=== PATIENT | male | born 1940 | race Caucasian/White ===

== ENCOUNTER 2022-06-04 09:41 | Day surgery (SDC) | payer MEDICARE, BC ==
[2022-06-04] VITALS (9 sets, daily range): BP systolic 129–163; BP diastolic 83–106
[~2022-06-04] VITALS: Ht 188 cm; Wt 125.5 kg
[2022-06-04] MEDS ORDERED: LORazepam 0.5 MG tablet PO PRN (10:20)
[2022-06-04] MEDS ORDERED: normal saline 1,000 ML IV SCH (10:20)
[2022-06-04 10:36] LABS: BASOPHILS # (AUTO) 0.1 X10'3 (0-0.2); BASOPHILS % (AUTO) 0.8 % (0-1); EOSINOPHILS # (AUTO) 0.2 X10'3 (0-0.9); EOSINOPHILS % (AUTO) 2.8 % (0-6); HEMATOCRIT 46.8 % (42.0-52.0); HEMOGLOBIN 15.7 g/dl (14.0-17.9); LYMPHOCYTES # (AUTO) 2.1 X10'3 (1.1-4.8); LYMPHOCYTES % (AUTO) 23.7 % (21-51); MEAN CORPUSCULAR HEMOGLOBIN 31.7 PG (27.0-31.0); MEAN CORPUSCULAR HGB CONC 33.5 g/dL (33.0-36.5); MEAN CORPUSCULAR VOLUME 94.6 FL (78-98); MEAN PLATELET VOLUME 8.4 FL (7.4-10.4); MONOCYTES # (AUTO) 0.9 X10'3 (0-0.9); MONOCYTES % (AUTO) 10.9 % (2-12); NEUTROPHILS # (AUTO) 5.4 X10'3 (1.8-7.7); NEUTROPHILS % (AUTO) 61.8 % (42-75); PLATELET COUNT 251 X10'3 (140-440); RED BLOOD COUNT 4.95 X10'6 (4.70-6.10); WHITE BLOOD COUNT 8.7 X10'3 (4.5-11.0)
[2022-06-04 10:55] LABS: CHLORIDE 104 MMOL/L (99-107); POTASSIUM 3.9 MMOL/L (3.5-5.1); SODIUM 139 MMOL/L (135-145)
[2022-06-04 11:01] LABS: ANION GAP 5 (8-16); BLOOD UREA NITROGEN 23 MG/DL (7-18); BUN/CREATININE RATIO 20.5 (5.4-32.0); CALCIUM 10.5 MG/DL (8.5-10.1); CREATININE 1.12 MG/DL (0.60-1.10); GLUCOSE 90 MG/DL (70-104); TOTAL CARBON DIOXIDE 30.4 MMOL/L (24-32); eGFR 63 ML/MIN
[2022-06-04] MEDS ORDERED: NITR0.4T48 SL (11:19)
[2022-06-04] MEDS ORDERED: SPIR25TA5 PO (11:19)
[2022-06-04] MEDS ORDERED: RIVA20TA PO (11:19)
[2022-06-04] MEDS ORDERED: FLEC100T PO (11:19)
[2022-06-04] MEDS ORDERED: AMLO5TAB16 PO (11:19)
[2022-06-04] MEDS ORDERED: ALPR0.5T9 PO (11:19)
[2022-06-04] MEDS ORDERED: midazolam 1 mg/ML 2ml injection ONE ×3 (13:26→13:57)
[2022-06-04] MEDS ORDERED: nitroGLYCERIN-Tridil 50MG/D5W 250 ML IV ONE (13:26)
[2022-06-04] MEDS ORDERED: fentaNYL/PF 50MCG/1 ML 2ML syringe ONE (13:26)
[2022-06-04] MEDS ORDERED: verapamil 2.5 mg/ml inj IV ONE (13:26)
[2022-06-04] MEDS ORDERED: LIDOcaine 1% (10mg/ml) 2ml vial ONE (13:27)
[2022-06-04] MEDS ORDERED: heparin 1,000unit/ml 10ml vial 10 ML ONE (13:27)
[2022-06-04] MEDS ORDERED: iohexol 350MG/ML 100ml bottle IV ONE (13:27)
== END 2022-06-04 18:00 | disposition home or self-care (01) ==
LOC: SSTAY O 09:41
PROVIDERS: ATTEND Internal Medicine Cardiovascular Disease
DX: I25.10 Atherosclerotic heart disease of native coronary artery without angina pectoris (principal); I48.0 Paroxysmal atrial fibrillation; I10 Essential (primary) hypertension; Z98.890 Other specified postprocedural states; Z82.49 Family history of ischemic heart disease and other diseases of the circulatory system; Z79.899 Other long term (current) drug therapy; Z88.1 Allergy status to other antibiotic agents
CPT/HCPCS: 36415; 80048; 82948; 83735; 85025; 85610; 93454; 99152; 99153; C1769; C1894; J1644; J2250; J3010; J3490; J7030; Q9967; A6258; A6402

== ENCOUNTER 2022-06-15 06:46 | Day surgery (SDC) | payer MEDICARE, BC ==
[~2022-06-15] VITALS: Ht 188 cm; Wt 126.1 kg
[2022-06-15] VITALS (36 sets, daily range): BP systolic 52–158; BP diastolic 25–96
[~2022-06-15 06:46] MED LIST: ALPR0.5T9 PO; AMLO5TAB16 PO; FLEC100T PO; NITR0.4T48 SL; RIVA20TA PO; SPIR25TA5 PO
[2022-06-15] MEDS ORDERED: diphenhydrAMINE 25mg capsule PO PRN (07:10)
[2022-06-15] MEDS ORDERED: normal saline 1,000 ML IV SCH (07:10)
[2022-06-15] MEDS ORDERED: POTA8CAP20 PO (07:13)
[2022-06-15] MEDS ORDERED: FURO20TA4 PO (07:13)
[2022-06-15] MEDS ORDERED: LIDOcaine 1% (10mg/ml) 2ml vial ONE (07:21)
[2022-06-15 07:54] LABS: BASOPHILS # (AUTO) 0.1 X10'3 (0-0.2); BASOPHILS % (AUTO) 0.7 % (0-1); EOSINOPHILS # (AUTO) 0.3 X10'3 (0-0.9); EOSINOPHILS % (AUTO) 3.1 % (0-6); HEMATOCRIT 44.4 % (42.0-52.0); LYMPHOCYTES # (AUTO) 2.1 X10'3 (1.1-4.8); LYMPHOCYTES % (AUTO) 24.9 % (21-51); MEAN CORPUSCULAR HEMOGLOBIN 31.8 PG (27.0-31.0); MEAN CORPUSCULAR HGB CONC 33.8 g/dL (33.0-36.5); MEAN CORPUSCULAR VOLUME 94.1 FL (78-98); MEAN PLATELET VOLUME 8.3 FL (7.4-10.4); MONOCYTES # (AUTO) 1.2 X10'3 (0-0.9); MONOCYTES % (AUTO) 14.6 % (2-12); NEUTROPHILS # (AUTO) 4.8 X10'3 (1.8-7.7); NEUTROPHILS % (AUTO) 56.7 % (42-75); PLATELET COUNT 261 X10'3 (140-440); RED BLOOD COUNT 4.72 X10'6 (4.70-6.10); RED CELL DISTRIBUTION WIDTH 14.2 % (11.5-14.5); WHITE BLOOD COUNT 8.4 X10'3 (4.5-11.0)
[2022-06-15 08:56] LABS: ALBUMIN 3.7 G/DL (3.4-5.0); ANION GAP 7 (8-16); BLOOD UREA NITROGEN 22 MG/DL (7-18); BUN/CREATININE RATIO 18.8 (5.4-32.0); CALCIUM 9.7 MG/DL (8.5-10.1); CHLORIDE 104 MMOL/L (99-107); CREATININE 1.17 MG/DL (0.60-1.10); GLUCOSE 89 MG/DL (70-104); POTASSIUM 3.8 MMOL/L (3.5-5.1); SODIUM 141 MMOL/L (135-145); TOTAL CARBON DIOXIDE 29.7 MMOL/L (24-32); eGFR 60 ML/MIN
[2022-06-15] MEDS ORDERED: LIDOcaine 1% 30ml preserv. free vial ONE (10:27)
[2022-06-15] MEDS ORDERED: fentaNYL/PF 50MCG/1 ML 2ML syringe ONE (10:27)
[2022-06-15] MEDS ORDERED: midazolam 1 mg/ML 2ml injection ONE ×2 (10:27→10:58)
[2022-06-15] MEDS ORDERED: heparin 1,000unit/ml 10ml vial 10 ML ONE (10:27)
[2022-06-15] MEDS ORDERED: iohexol 350MG/ML 100ml bottle IV ONE ×3 (10:28→12:40)
[2022-06-15] MEDS ORDERED: HYDROmorphone 1 mg/ml syringe ONE ×2 (11:19→12:32)
[2022-06-15] MEDS ORDERED: morphine 2 MG/ML inj. syringe ONE (11:29)
[2022-06-15] MEDS ORDERED: protamine sulfate 10mg/ml inj. ONE (12:12)
[2022-06-15] MEDS ORDERED: clopidogrel 300mg tablet ONE (13:05)
[2022-06-15] MEDS ORDERED: nitroGLYCERIN 0.4mg SUBLingual tab SL ONE (13:49)
--- NOTE | 2022-06-15 13:49 | NUR ---
pt c/o left arm pain, notified Dr. Hawkins. Nitro SL given
--- NOTE | 2022-06-15 13:51 | NUR ---
nitro #2 given arm pain 08/31
[2022-06-15] MEDS ORDERED: ondansetron/PF 4mg/2ml inj IV PRN (13:55)
[2022-06-15] MEDS ORDERED: proCHLORperazine 10 MG/2 ml inj IV PRN (13:55)
[2022-06-15] MEDS ORDERED: HYDROcodone/acetaminophen 10/325mg tab PO PRN (13:55)
[2022-06-15] MEDS ORDERED: OXAZEpam 15mg capsule PO PRN (13:55)
--- NOTE | 2022-06-15 13:55 | NUR ---
pt reports cp 08/31 nitro #3 given
[2022-06-15] MEDS ORDERED: ketorolac trometh. 30mg/ml inj. IV ONE (14:10)
--- NOTE | 2022-06-15 15:25 | NUR ---
Pt reports crushing CP 10/10, grunting and grabbing at chest. Dr. Hawkins called. Nitro SL given
--- NOTE | 2022-06-15 15:29 | NUR ---
pt still c/o 10/10 CP nitro SL #2 given
--- NOTE | 2022-06-15 15:33 | NUR ---
pt continues to c/o CP nitro SL #3 given, EKG done
--- NOTE | 2022-06-15 15:38 | NUR ---
Pt BP extremely low despite Trendelenburg position and fluid bolus being administered.
--- NOTE | 2022-06-15 15:48 | NUR ---
Dr. Hawkins at bedside, Orders received.
[2022-06-15] MEDS ORDERED: colchicine 0.6mg tablet PO SCH (15:50)
--- NOTE | 2022-06-15 15:55 | NUR ---
ECHO in progress, Dr. Hawkins at bedside.
--- NOTE | 2022-06-15 16:59 | NUR ---
Patient in Short Stay. I have received report from Jen VEE and had the opportunity to ask questions and assume patient care.
[2022-06-15] MEDS ORDERED: TACR30OI4 TOP (17:20)
[2022-06-15] MEDS ORDERED: KETO15CR2 TOP (17:20)
[2022-06-15] MEDS ORDERED: ISOS30TA84 PO (17:20)
[2022-06-15] MEDS ORDERED: nitroGLYCERIN 0.4mg SUBLingual tab SL PRN (17:25)
[2022-06-15] MEDS ORDERED: ALPRAZolam 0.5mg tablet PO PRN (17:25)
[2022-06-15] MEDS ORDERED: ketoconazole 2% cream 15gm TP PRN (18:00)
--- NOTE | 2022-06-15 18:32 | NUR ---
Problems reprioritized. Patient report given, questions answered & plan of care reviewed with Blossom VEE.
[2022-06-15] MEDS: normal saline 1000ml 1,000 ML IV SCH (18:55)
[2022-06-15] MEDS ORDERED: TACROLIMUS TOP SCH (20:00)
[2022-06-15] MEDS: HYDROcodone/acetaminophen 5mg/325mg tablet PO PRN (21:48)
[2022-06-15] MEDS: flecainide 50mg tablet PO SCH (21:54)
[2022-06-16 02:00] VITALS: BP 119/83
[2022-06-16] MEDS: HYDROcodone/acetaminophen 5mg/325mg tablet PO PRN (04:07)
[2022-06-16 06:00] VITALS: BP 124/99
[2022-06-16 06:29] LABS: BASOPHILS % (AUTO) 0.1 % (0-1); EOSINOPHILS # (AUTO) 0.1 X10'3 (0-0.9); EOSINOPHILS % (AUTO) 0.5 % (0-6); HEMOGLOBIN 13.3 g/dl (14.0-17.9); LYMPHOCYTES # (AUTO) 1.4 X10'3 (1.1-4.8); LYMPHOCYTES % (AUTO) 10.6 % (21-51); MEAN CORPUSCULAR HEMOGLOBIN 31.4 PG (27.0-31.0); MEAN CORPUSCULAR HGB CONC 33.2 g/dL (33.0-36.5); MEAN CORPUSCULAR VOLUME 94.6 FL (78-98); MEAN PLATELET VOLUME 8.5 FL (7.4-10.4); MONOCYTES # (AUTO) 1.4 X10'3 (0-0.9); MONOCYTES % (AUTO) 10.5 % (2-12); NEUTROPHILS # (AUTO) 10.7 X10'3 (1.8-7.7); NEUTROPHILS % (AUTO) 78.3 % (42-75); PLATELET COUNT 257 X10'3 (140-440); RED BLOOD COUNT 4.22 X10'6 (4.70-6.10); RED CELL DISTRIBUTION WIDTH 14.2 % (11.5-14.5); WHITE BLOOD COUNT 13.6 X10'3 (4.5-11.0)
[2022-06-16 06:39] LABS: ANION GAP 8 (8-16); BLOOD UREA NITROGEN 24 MG/DL (7-18); BUN/CREATININE RATIO 20.7 (5.4-32.0); CALCIUM 8.6 MG/DL (8.5-10.1); CHLORIDE 103 MMOL/L (99-107); CREATININE 1.16 MG/DL (0.60-1.10); GLUCOSE 114 MG/DL (70-104); POTASSIUM 4.2 MMOL/L (3.5-5.1); SODIUM 134 MMOL/L (135-145); TOTAL CARBON DIOXIDE 22.7 MMOL/L (24-32); eGFR 61 ML/MIN
--- NOTE | 2022-06-16 06:39 | NUR ---
Problems reprioritized. Patient report given, questions answered & plan of care reviewed with Carol VEE.
[2022-06-16 07:32] VITALS: BP_SYST 153
[2022-06-16] MEDS: flecainide 50mg tablet PO SCH (07:32)
[2022-06-16] MEDS ORDERED: clopidogrel 75mg tablet PO SCH (08:00)
[2022-06-16] MEDS: normal saline 1000ml 1,000 ML IV SCH (08:00)
[2022-06-16] MEDS ORDERED: potassium chloride 8mEq ER tablet PO SCH (08:00)
[2022-06-16] MEDS ORDERED: isosorbide mononitrate 30mg tab.SR.24H PO SCH (08:00)
[2022-06-16] MEDS ORDERED: spironolactone 25 MG tablet PO SCH (08:00)
[2022-06-16] MEDS ORDERED: amLODIPine 5mg tablet PO SCH (08:00)
[2022-06-16] MEDS ORDERED: furosemide 20MG tablet PO SCH (08:00)
[2022-06-16] MEDS ORDERED: aspirin 81mg, enteric-coated 1 TAB TABLET.DR PO SCH (08:00)
[2022-06-16] MEDS ORDERED: CLOP-32 PO (10:33)
[2022-06-16] MEDS ORDERED: COLC0.6T72 PO (10:33)
[2022-06-16] MEDS ORDERED: ASPI81TA52 PO (10:33)
--- NOTE | 2022-06-16 11:00 | NUR ---
Called [facility] on to fill pt's prescriptions. Discharge instructions discussed with the patient and spouse. All questions answered. Pt and spouse stated that they understand all information. Removed PIV per protocol. Pt will leave unit via wheelchair.
--- NOTE | 2022-06-16 11:45 | NUR ---
pt leaving unit now via wheelchair.
[2022-06-17] MEDS ORDERED: rivaroxaban 20mg tablet PO SCH (18:00)
== END 2022-06-16 11:59 | disposition home or self-care (01) ==
LOC: SSTAY O 06:46 → PCU 3S 16:39 → SSTAY O 06-16 11:59
PROVIDERS: ATTEND Internal Medicine Cardiovascular Disease
DX: I25.10 Atherosclerotic heart disease of native coronary artery without angina pectoris (principal); I48.0 Paroxysmal atrial fibrillation; I10 Essential (primary) hypertension; Z98.890 Other specified postprocedural states; Z79.899 Other long term (current) drug therapy; Z82.49 Family history of ischemic heart disease and other diseases of the circulatory system; E78.5 Hyperlipidemia, unspecified
CPT/HCPCS: 36415; 80048; 83735; 85025; 85610; 87081; 92978; 92979; 93005; 93308; 99152; 99153; C1725; C1751; C1753; C1760; C1769; C1874; C1894; C9600; C9601; J1170; J1644; J1885; J2250; J2270; J2720; J3010; J3490; J7030; Q0163; Q9967; A4615; A6258; G0378